=== PATIENT | male | born 1965 | race African-American/Black ===

== ENCOUNTER 2018-05-09 16:31 | Inpatient (IN) | payer BC, MEDICAID ==
[2018-05-09] MEDS: CEFEPIME 2GM/50 ML (PMX) 50 ML IVPB (17:12)
[2018-05-09] MEDS: ONDANSETRON 4 MG INJ IV (17:13)
[2018-05-09] MEDS: ACETAMINOPHEN 325 MG TAB PO ×2 (17:13→22:57)
[2018-05-09] MEDS: morphine 4 MG/ML VIAL IV (17:14)
[2018-05-09] MEDS: SODIUM CHLORIDE 0.9% 1L BAG IV* (17:14)
[2018-05-09 17:15] LABS: ABNORMAL IP MESSAGE 1; HEMATOCRIT 38.2 % (42.0-52.0); HEMOGLOBIN 12.2 g/dl (14.0-18.0); MEAN CORPUSCULAR HEMOGLOBIN 28.8 pg (29.0-33.0); MEAN CORPUSCULAR HGB CONC 31.9 g/dl (32.0-37.0); MEAN CORPUSCULAR VOLUME 90.3 fl (82.0-101.0); MEAN PLATELET VOLUME 9.2 fl (7.4-10.4); PLATELET COUNT 173 10^3/UL (140-415); POSITIVE DIFF @See below; RED BLOOD COUNT 4.23 10^6/ul (4.70-6.10); RED CELL DISTRIBUTION WIDTH 13.4 % (11.5-14.5)
[2018-05-09 17:15] LABS: WHITE BLOOD COUNT 3.1 10^3/ul (4.8-10.8)
[2018-05-09 17:23] LABS: ADD UMIC YES; UR ASCORBIC ACID NEGATIVE (NEGATIVE); UR BACTERIA FEW /HPF (NONE SEEN); UR BILIRUBIN (Dip) NEGATIVE (NEGATIVE); UR BLOOD (Dip) 1+ mg/dL (NEGATIVE); UR CLARITY CLEAR (CLEAR); UR COLOR YELLOW (YELLOW); UR GLUCOSE (Dip) NEGATIVE (NEGATIVE); UR KETONES (Dip) NEGATIVE (NEGATIVE); UR LEUKOCYTE ESTERASE (Dip) NEGATIVE Leu/ul (NEGATIVE); UR NITRITE (Dip) NEGATIVE (NEGATIVE); UR RBC 2 /HPF (0-5); UR SPECIFIC GRAVITY (Dip) 1.013 (1.003-1.030); UR TOTAL PROTEIN (Dip) 2+ mg/dl (NEGATIVE); UR UROBILINOGEN (Dip) NEGATIVE (NEGATIVE); UR WBC 1 /HPF (0-5)
[2018-05-09 17:29] LABS: ADD MAN DIFF? YES
[2018-05-09 17:30] LABS: INR 0.97
[2018-05-09] MEDS: VANCOMYCIN 1 GM (PMX) 250 ML IVPB (17:30)
[2018-05-09 17:31] LABS: PARTIAL THROMBOPLASTIN TIME 29.6 Sec (23.0-35.0)
[2018-05-09 17:50] LABS: ALANINE AMINOTRANSFERASE 17 IU/L (13-69); ALBUMIN 3.9 g/dl (3.3-4.9); ALBUMIN/GLOBULIN RATIO 1.21; ALKALINE PHOSPHATASE 37 IU/L (42-121); ANION GAP 10 (5-13); ASPARTATE AMINO TRANSFERASE 21 IU/L (15-46); BILIRUBIN,INDIRECT 0.2 mg/dl (0-1.1); BILIRUBIN,TOTAL 0.2 mg/dl (0.2-1.3); BLOOD UREA NITROGEN 32 mg/dl (7-20); CALCIUM 9.3 mg/dl (8.4-10.2); CARBON DIOXIDE 22 mmol/L (21-31); CHLORIDE 108 mmol/L (97-110); CREATININE 3.77 mg/dl (0.61-1.24); Estimated GFR 21 mL/min (>60); GLUCOSE 116 mg/dl (70-220); POTASSIUM 4.2 mmol/L (3.5-5.1); SODIUM 140 mmol/L (135-144); TOTAL PROTEIN 7.1 g/dl (6.1-8.1)
[2018-05-09 17:59] LABS: TROPONIN-I 0.031 ng/ml (0.000-0.120)
[2018-05-09] MEDS ORDERED: ONDANSETRON 4 MG INJ IV (19:00)
[2018-05-09 19:17] LABS: BASOPHILS % (M) 1 % (0-2); LYMPHOCYTES #M 0.4 10^3/ul (0.8-2.9); LYMPHOCYTES % (M) 16 % (15-51); MONOCYTE #M 0.3 10^3/ul (0.3-0.9); MONOCYTES % (M) 12 % (0-11); PLATELET MORPHOLOGY COMMENT @See below; SEGMENTED NEUTROPHILS (M) % 71 % (39-77); SMUDGE%M 9 % (0-0)
[2018-05-09 22:25] LABS: LACTIC ACID 0.8 mmol/L (0.5-2.0)
[2018-05-10] MEDS: GUAIFENESIN 20 MG/ML 5ML CUP PO (00:08)
[2018-05-10] MEDS ORDERED: GLUCAGON 1 MG INJ IM (00:30)
[2018-05-10] MEDS ORDERED: DEXTROSE 50% 50 ML SYRINGE IV ×2 (00:30)
[2018-05-10] MEDS ORDERED: GLUCOSE GEL 15 GRAM TUBE BUCCAL (00:30)
[2018-05-10] MEDS ORDERED: GLUCOSE GEL 15 GRAM TUBE PO ×2 (00:30)
[2018-05-10] MEDS ORDERED: NACL 0.9% 3 ML SYG IV (00:30)
[2018-05-10] MEDS: MYCOPHENOLATE 250 MG CAP PO ×3 (00:53→20:29)
[2018-05-10] MEDS: TACROLIMUS 1 MG CAP PO ×3 (00:54→20:29)
[2018-05-10] MEDS: ACCU-CHEK XX (02:00)
[2018-05-10] MEDS: ACETAMINOPHEN 325 MG TAB PO (02:31)
[2018-05-10 06:50] LABS: ADD MAN DIFF? NO
[2018-05-10 06:57] LABS: BASOPHILS % 0.4 % (0.0-2.0); EOSINOPHILS % 1.2 % (0.0-7.0); HEMATOCRIT 36.1 % (42.0-52.0); HEMOGLOBIN 11.6 g/dl (14.0-18.0); LYMPHOCYTES # 0.7 10^3/ul (0.8-2.9); LYMPHOCYTES % 30.2 % (15.0-51.0); MEAN CORPUSCULAR HEMOGLOBIN 29.3 pg (29.0-33.0); MEAN CORPUSCULAR HGB CONC 32.1 g/dl (32.0-37.0); MEAN CORPUSCULAR VOLUME 91.2 fl (82.0-101.0); MEAN PLATELET VOLUME 9.1 fl (7.4-10.4); MONOCYTE # 0.4 10^3/ul (0.3-0.9); MONOCYTES % 15.1 % (0.0-11.0); NEUTROPHIL # 1.3 10^3/ul (1.6-7.5); NEUTROPHILS % 53.1 % (39.0-77.0); PLATELET COUNT 139 10^3/UL (140-415); RED BLOOD COUNT 3.96 10^6/ul (4.70-6.10); RED CELL DISTRIBUTION WIDTH 13.6 % (11.5-14.5)
[2018-05-10 06:57] LABS: WHITE BLOOD COUNT 2.5 10^3/ul (4.8-10.8)
[2018-05-10 07:03] LABS: HEMOGLOBIN A1C 5.8 % (0-5.9)
[2018-05-10 07:18] LABS: ALANINE AMINOTRANSFERASE 16 IU/L (13-69); ALBUMIN 3.5 g/dl (3.3-4.9); ALKALINE PHOSPHATASE 31 IU/L (42-121); ANION GAP 9 (5-13); ASPARTATE AMINO TRANSFERASE 21 IU/L (15-46); BILIRUBIN,INDIRECT 0.2 mg/dl (0-1.1); BILIRUBIN,TOTAL 0.2 mg/dl (0.2-1.3); BLOOD UREA NITROGEN 29 mg/dl (7-20); CALCIUM 8.7 mg/dl (8.4-10.2); CARBON DIOXIDE 21 mmol/L (21-31); CHLORIDE 107 mmol/L (97-110); CHOL/HDL RATIO 2.7 RATIO; CHOLESTEROL 102 mg/dl (100-200); CREATININE 3.35 mg/dl (0.61-1.24); Estimated GFR 24 mL/min (>60); GLUCOSE 101 mg/dl (70-220); HDL CHOLESTEROL 37 mg/dl (28-71); LDL CHOLESTEROL,CALCULATED 45 mg/dl; MAGNESIUM 1.3 mg/dl (1.7-2.5); POTASSIUM 4.1 mmol/L (3.5-5.1); SODIUM 137 mmol/L (135-144); TOTAL PROTEIN 6.4 g/dl (6.1-8.1); TRIGLYCERIDES 101 mg/dl (0-149)
[2018-05-10] MEDS: HYDROCODONE/APAP (5/325) TAB PO (07:25)
[2018-05-10] MEDS: INSULIN ASPART [NOVOLOG] 3 ML PEN SC ×4 (07:49→20:44)
[2018-05-10] MEDS: CLOPIDOGREL 75 MG TAB PO (08:42)
[2018-05-10] MEDS: predniSONE 5 MG TAB PO (08:43)
[2018-05-10] MEDS: DILTIAZEM (CD) 300 MG CAP PO (08:43)
[2018-05-10] MEDS: ASPIRIN (EC) 81 MG TAB PO (08:43)
[2018-05-10] MEDS: ALLOPURINOL 100 MG TAB PO (08:43)
[2018-05-10] MEDS ORDERED: MYCOPHENOLATE 250 MG CAP PO ×2 (09:00→10:00)
[2018-05-10] MEDS ORDERED: NON-FORMULARY/PATIENT OWN MED (Fenofibrate, Micronized (Fenofibrate) 134 MG) PO (09:00)
[2018-05-10] MEDS ORDERED: TACROLIMUS 1 MG CAP PO (09:00)
[2018-05-10] MEDS: FENOFIBRATE 145 MG TAB PO (11:11)
[2018-05-10] MEDS: MAGNESIUM SULFATE 2 GM/50 ML 50 ML IVPB (11:12)
[2018-05-10] MEDS ORDERED: AZITHROMYCIN 500MG/NS (PMX) 250 ML IVPB (16:00)
[2018-05-10] MEDS: CEFTRIAXONE 1 GM/50 ML (PMX) 50 ML IVPB (17:02)
[2018-05-10] MEDS: AZITHROMYCIN 500MG/NS (PMX) 250 ML IVPB (17:41)
[2018-05-10] MEDS: CEPASTAT LOZENGE MT (19:38)
[2018-05-10] MEDS: TAMSULOSIN (SR) 0.4 MG CAP PO (20:29)
[2018-05-10] MEDS: ATORVASTATIN 10 MG TAB PO (20:30)
[2018-05-10] MEDS ORDERED: NON-FORMULARY/PATIENT OWN MED (Pravastatin Sodium* 40 MG) PO (21:00)
[2018-05-10] MEDS: ZOLPIDEM 5 MG TAB PO (21:15)
[2018-05-11] MEDS: ACCU-CHEK XX ×2 (02:00→21:26)
[2018-05-11 06:02] LABS: ADD MAN DIFF? NO
[2018-05-11 06:09] LABS: BASOPHILS % 0.4 % (0.0-2.0); EOSINOPHILS # 0.1 10^3/ul (0.0-0.5); EOSINOPHILS % 2.3 % (0.0-7.0); HEMATOCRIT 36.5 % (42.0-52.0); HEMOGLOBIN 11.9 g/dl (14.0-18.0); LYMPHOCYTES # 0.9 10^3/ul (0.8-2.9); LYMPHOCYTES % 33.8 % (15.0-51.0); MEAN CORPUSCULAR HEMOGLOBIN 29.2 pg (29.0-33.0); MEAN CORPUSCULAR HGB CONC 32.6 g/dl (32.0-37.0); MEAN CORPUSCULAR VOLUME 89.7 fl (82.0-101.0); MEAN PLATELET VOLUME 9.3 fl (7.4-10.4); MONOCYTE # 0.3 10^3/ul (0.3-0.9); MONOCYTES % 12.7 % (0.0-11.0); NEUTROPHIL # 1.3 10^3/ul (1.6-7.5); NEUTROPHILS % 50.8 % (39.0-77.0); PLATELET COUNT 154 10^3/UL (140-415); RED BLOOD COUNT 4.07 10^6/ul (4.70-6.10); RED CELL DISTRIBUTION WIDTH 13.2 % (11.5-14.5)
[2018-05-11 06:09] LABS: WHITE BLOOD COUNT 2.6 10^3/ul (4.8-10.8)
[2018-05-11 06:34] LABS: ANION GAP 9 (5-13); BLOOD UREA NITROGEN 27 mg/dl (7-20); CALCIUM 8.9 mg/dl (8.4-10.2); CARBON DIOXIDE 23 mmol/L (21-31); CHLORIDE 105 mmol/L (97-110); CREATININE 3.15 mg/dl (0.61-1.24); Estimated GFR 25 mL/min (>60); GLUCOSE 99 mg/dl (70-220); MAGNESIUM 1.5 mg/dl (1.7-2.5); POTASSIUM 3.8 mmol/L (3.5-5.1); SODIUM 137 mmol/L (135-144)
[2018-05-11] MEDS: INSULIN ASPART [NOVOLOG] 3 ML PEN SC ×4 (08:50→21:00)
[2018-05-11] MEDS ORDERED: MYCOPHENOLATE 250 MG CAP PO (09:00)
[2018-05-11] MEDS: CLOPIDOGREL 75 MG TAB PO (09:59)
[2018-05-11] MEDS: FENOFIBRATE 145 MG TAB PO (09:59)
[2018-05-11] MEDS: ALLOPURINOL 100 MG TAB PO (09:59)
[2018-05-11] MEDS: predniSONE 5 MG TAB PO (09:59)
[2018-05-11] MEDS: ASPIRIN (EC) 81 MG TAB PO (09:59)
[2018-05-11] MEDS: TACROLIMUS 1 MG CAP PO ×2 (10:14→20:19)
[2018-05-11] MEDS: DILTIAZEM (CD) 300 MG CAP PO (10:23)
[2018-05-11] MEDS: MYCOPHENOLATE 250 MG CAP PO (10:23)
[2018-05-11 16:06] LABS: TACROLIMUS 3.9 mcg/L
[2018-05-11] MEDS: CEFTRIAXONE 1 GM/50 ML (PMX) 50 ML IVPB (16:24)
[2018-05-11] MEDS: AZITHROMYCIN 500MG/NS (PMX) 250 ML IVPB (17:11)
[2018-05-11] MEDS: ONDANSETRON 4 MG INJ IV (17:50)
[2018-05-11] MEDS: ACETAMINOPHEN 325 MG TAB PO (17:51)
[2018-05-11] MEDS: MAGNESIUM SULFATE 4 GM/100 ML 100 ML IVPB (18:37)
[2018-05-11] MEDS: TAMSULOSIN (SR) 0.4 MG CAP PO (20:19)
[2018-05-11] MEDS: ATORVASTATIN 10 MG TAB PO (20:21)
[2018-05-12 05:11] LABS: WHITE BLOOD COUNT 1.9 10^3/ul (4.8-10.8)
[2018-05-12 05:11] LABS: ABNORMAL IP MESSAGE 1; HEMATOCRIT 38.2 % (42.0-52.0); HEMOGLOBIN 12.3 g/dl (14.0-18.0); MEAN CORPUSCULAR HEMOGLOBIN 28.6 pg (29.0-33.0); MEAN CORPUSCULAR HGB CONC 32.2 g/dl (32.0-37.0); MEAN CORPUSCULAR VOLUME 88.8 fl (82.0-101.0); MEAN PLATELET VOLUME 9.1 fl (7.4-10.4); PLATELET COUNT 181 10^3/UL (140-415); POSITIVE DIFF @See below; RED CELL DISTRIBUTION WIDTH 12.9 % (11.5-14.5)
[2018-05-12 05:17] LABS: ADD MAN DIFF? YES
[2018-05-12 05:37] LABS: ANION GAP 8 (5-13); BLOOD UREA NITROGEN 26 mg/dl (7-20); CALCIUM 9.5 mg/dl (8.4-10.2); CARBON DIOXIDE 24 mmol/L (21-31); CHLORIDE 108 mmol/L (97-110); Estimated GFR 25 mL/min (>60); GLUCOSE 117 mg/dl (70-220); MAGNESIUM 2.5 mg/dl (1.7-2.5); POTASSIUM 3.8 mmol/L (3.5-5.1); SODIUM 140 mmol/L (135-144)
[2018-05-12] MEDS: INSULIN ASPART [NOVOLOG] 3 ML PEN SC ×4 (07:50→20:28)
[2018-05-12] MEDS: FENOFIBRATE 145 MG TAB PO (08:45)
[2018-05-12] MEDS: ALLOPURINOL 100 MG TAB PO (08:45)
[2018-05-12] MEDS: CLOPIDOGREL 75 MG TAB PO (08:45)
[2018-05-12] MEDS: predniSONE 5 MG TAB PO (08:45)
[2018-05-12] MEDS: ASPIRIN (EC) 81 MG TAB PO (08:45)
[2018-05-12] MEDS: TACROLIMUS 1 MG CAP PO ×2 (08:45→20:26)
[2018-05-12] MEDS: DILTIAZEM (CD) 300 MG CAP PO (08:46)
[2018-05-12 09:02] LABS: ANISOCYTOSIS 1+ (0-0); BAND NEUTROPHILS % (M) 2 % (0-4); BURR CELLS 1+ (0-0); GIANT THROMBO% (M) 2 % (0-0); LYMPHOCYTES % (M) 57 % (15-51); MONOCYTE #M 0.1 10^3/ul (0.3-0.9); MONOCYTES % (M) 7 % (0-11); PLATELET ESTIMATE NORMAL; POIKILOCYTOSIS 1+ (0-0); REACTIVE LYMPHOCYTES #M 0.2 10^3/ul (0.0-0.0); REACTIVE LYMPHOCYTES% (M) 12 % (0-0); SEG NEUT #M 0.4 10^3/ul (1.6-7.5); SEGMENTED NEUTROPHILS (M) % 22 % (39-77); SMUDGE%M 20 % (0-0)
[2018-05-12] MEDS ORDERED: ALBUTEROL/IPRATROPIUM (NEB) 3 ML AMP HHN (10:00)
[2018-05-12] MEDS ORDERED: CEFPODOXIME 200 MG TAB PO (10:00)
[2018-05-12] MEDS ORDERED: CEFUROXIME 250 MG TAB PO (13:00)
[2018-05-12] MEDS: ALBUTEROL/IPRATROPIUM (NEB) 3 ML AMP HHN ×2 (14:52→19:45)
[2018-05-12] MEDS: CEFUROXIME 250 MG TAB PO (15:55)
[2018-05-12] MEDS: AZITHROMYCIN 250 MG TAB PO (20:24)
[2018-05-12] MEDS: TAMSULOSIN (SR) 0.4 MG CAP PO (20:24)
[2018-05-12] MEDS: ATORVASTATIN 10 MG TAB PO (20:24)
[2018-05-13] MEDS: ACCU-CHEK XX (02:00)
[2018-05-13 05:14] LABS: ADD MAN DIFF? NO
[2018-05-13 05:34] LABS: ABNORMAL IP MESSAGE 1; BASOPHILS % 0.4 % (0.0-2.0); EOSINOPHILS % 1.2 % (0.0-7.0); HEMATOCRIT 36.5 % (42.0-52.0); HEMOGLOBIN 11.9 g/dl (14.0-18.0); LYMPHOCYTES # 1.4 10^3/ul (0.8-2.9); LYMPHOCYTES % 55.7 % (15.0-51.0); MEAN CORPUSCULAR HEMOGLOBIN 29.2 pg (29.0-33.0); MEAN CORPUSCULAR HGB CONC 32.6 g/dl (32.0-37.0); MEAN CORPUSCULAR VOLUME 89.5 fl (82.0-101.0); MONOCYTE # 0.3 10^3/ul (0.3-0.9); MONOCYTES % 10.3 % (0.0-11.0); NEUTROPHIL # 0.8 10^3/ul (1.6-7.5); PLATELET COUNT 189 10^3/UL (140-415); POSITIVE DIFF @See below; RED BLOOD COUNT 4.08 10^6/ul (4.70-6.10); RED CELL DISTRIBUTION WIDTH 12.9 % (11.5-14.5)
[2018-05-13 05:34] LABS: WHITE BLOOD COUNT 2.5 10^3/ul (4.8-10.8)
[2018-05-13 06:00] LABS: ALANINE AMINOTRANSFERASE 16 IU/L (13-69); ALBUMIN 3.5 g/dl (3.3-4.9); ALKALINE PHOSPHATASE 32 IU/L (42-121); ANION GAP 7 (5-13); ASPARTATE AMINO TRANSFERASE 19 IU/L (15-46); BILIRUBIN,INDIRECT 0.2 mg/dl (0-1.1); BILIRUBIN,TOTAL 0.2 mg/dl (0.2-1.3); BLOOD UREA NITROGEN 31 mg/dl (7-20); CALCIUM 9.2 mg/dl (8.4-10.2); CARBON DIOXIDE 23 mmol/L (21-31); CHLORIDE 110 mmol/L (97-110); CREATININE 3.73 mg/dl (0.61-1.24); Estimated GFR 21 mL/min (>60); GLUCOSE 115 mg/dl (70-220); SODIUM 140 mmol/L (135-144); TOTAL PROTEIN 6.4 g/dl (6.1-8.1)
[2018-05-13 07:39] LABS: ANISOCYTOSIS 3+ (0-0); BAND NEUTROPHILS % (M) 3 % (0-4); BASOPHILS % (M) 1 % (0-2); EOSINOPHILS % (M) 4 % (0-7); GIANT THROMBO% (M) 3 % (0-0); LYMPHOCYTES #M 1.1 10^3/ul (0.8-2.9); LYMPHOCYTES % (M) 45 % (15-51); METAMYELOCYTES %M 1 % (0-0); MONOCYTE #M 0.2 10^3/ul (0.3-0.9); MONOCYTES % (M) 9 % (0-11); PLATELET ESTIMATE NORMAL; POIKILOCYTOSIS 1+ (0-0); POLYCHROMASIA 3+ (0-0); REACTIVE LYMPHOCYTES% (M) 1 % (0-0); SEG NEUT #M 0.9 10^3/ul (1.6-7.5); SEGMENTED NEUTROPHILS (M) % 36 % (39-77); SMUDGE%M 6 % (0-0)
[2018-05-13 08:02] LABS: PHOSPHORUS 4.1 mg/dl (2.5-4.9)
[2018-05-13] MEDS: ALLOPURINOL 100 MG TAB PO (08:47)
[2018-05-13] MEDS: CEFUROXIME 250 MG TAB PO (08:47)
[2018-05-13] MEDS: CLOPIDOGREL 75 MG TAB PO (08:47)
[2018-05-13] MEDS: TACROLIMUS 1 MG CAP PO (08:47)
[2018-05-13] MEDS: predniSONE 5 MG TAB PO (08:47)
[2018-05-13] MEDS: DILTIAZEM (CD) 300 MG CAP PO (08:48)
[2018-05-13] MEDS: ASPIRIN (EC) 81 MG TAB PO (08:48)
[2018-05-13] MEDS: INSULIN ASPART [NOVOLOG] 3 ML PEN SC ×2 (08:52→12:52)
[2018-05-13] MEDS: ALBUTEROL/IPRATROPIUM (NEB) 3 ML AMP HHN ×2 (09:06→14:00)
== END 2018-05-13 15:30 | disposition home or self-care (01) | DRG 871 ==
LOC: MS1 05-11 05:50 → E/R 16:31 → TEL 18:44
DX: A41.9 Sepsis, unspecified organism (principal); J18.9 Pneumonia, unspecified organism; Z94.0 Kidney transplant status; I13.0 Hypertensive heart and chronic kidney disease with heart failure and stage 1 through stage 4 chronic kidney disease, or unspecified chronic kidney disease; D70.2 Other drug-induced agranulocytosis; E11.22 Type 2 diabetes mellitus with diabetic chronic kidney disease; I50.9 Heart failure, unspecified; I48.91 Unspecified atrial fibrillation; J20.9 Acute bronchitis, unspecified; N18.9 Chronic kidney disease, unspecified; F17.210 Nicotine dependence, cigarettes, uncomplicated; I25.10 Atherosclerotic heart disease of native coronary artery without angina pectoris; F10.21 Alcohol dependence, in remission; F32.9 Major depressive disorder, single episode, unspecified; E78.5 Hyperlipidemia, unspecified; N40.0 Benign prostatic hyperplasia without lower urinary tract symptoms; D64.9 Anemia, unspecified; T45.1X5A Adverse effect of antineoplastic and immunosuppressive drugs, initial encounter; Y92.89 Other specified places as the place of occurrence of the external cause; Z79.4 Long term (current) use of insulin; Z79.82 Long term (current) use of aspirin
CPT/HCPCS: 36415; 71045; 76775; 80048; 80053; 80061; 80197; 81001; 82962; 83036; 83605; 83735; 84100; 84484; 85025; 85610; 85730; 87040; 87086; 87400; 90686; 93005; 94640; 94664; 96374; 96375; 99291-25